=== PATIENT | female | born 1940 | race Hispanic/Latino ===

== ENCOUNTER → 2017-01-14 | Outpatient (CLI) | payer MEDICARE, MEDICAID | END | disposition home or self-care (01) | LOC: GMAM 15:06 | PROVIDERS: ATTEND Family Medicine | DX: N39.0 Urinary tract infection, site not specified (principal) ==

== ENCOUNTER → 2017-01-19 | Outpatient (CLI) | payer MEDICARE, MEDICAID ==
--- NOTE | 2017-01-20 08:47 | CT ---
EXAM DESCRIPTION: Abdomen and pelvis CT. CLINICAL HISTORY: Abdominal pain. COMPARISON: February 2015 TECHNIQUE: Prior to and after the administration of IV contrast thin slice imaging of the abdomen and pelvis was performed. FINDINGS: GI: No dilated bowel, free air, or free fluid. Liver: Fatty infiltration of the liver noted on the pre contrasted images. The liver measures 17 cm in diameter. Portal vein is widely patent. Biliary: No calcified gallstones. Spleen: Unremarkable. Pancreas: Unremarkable. Adrenal Glands: No significant nodularity. Kidneys: No suspicious enhancement. No renal stones noted. Negative for obstruction. Pelvic organs: Patient is status posthysterectomy. Bones: Mild degenerative change of the lumbar spine at L2-3. No evidence of spinal canal narrowing. Lymph nodes: No enlarged lymph nodes. Lung bases: No significant consolidation or nodularity. IMPRESSION: Today's exam demonstrates fatty infiltration of the liver, but no evidence of hepatomegaly or mass. No intra or extrahepatic biliary duct dilatation and no evidence of portal vein abnormality. Mild atherosclerosis of the non aneurysmal abdominal aorta and minimal degenerative change of the lumbar spine Electronically signed by: Joe Guadalupe MD 01/20/2017 08:45
== END | disposition home or self-care (01) ==
LOC: CT 10:00
PROVIDERS: ATTEND Family Medicine
DX: R94.5 Abnormal results of liver function studies (principal)

== ENCOUNTER → 2017-02-03 | Outpatient (CLI) | payer MEDICARE, MEDICAID | LOC: LAB.O 15:32 | PROVIDERS: ATTEND Internal Medicine Hematology & Oncology | DX: D72.819 Decreased white blood cell count, unspecified (principal); D72.820 Lymphocytosis (symptomatic) ==

== ENCOUNTER → 2018-07-01 | Outpatient (CLI) | payer MEDICARE, MEDICAID | LOC: GMAM 14:34 | PROVIDERS: ATTEND Family Medicine | DX: M79.673 Pain in unspecified foot (principal) ==

== ENCOUNTER → 2018-10-27 | Outpatient (CLI) | payer MEDICARE, MEDICAID ==
--- NOTE | 2018-10-27 10:29 | CT ---
EXAM DESCRIPTION: Abdomen/Pelvis w/Contrast: Computed Tomography. CLINICAL HISTORY: ABNORMAL FINDINGS ON RADIOLOGICAL AND OTHER EXAM OF BILIARY TRACT COMPARISON: CT abdomen pelvis with contrast 01/19/2017. CT abdomen and pelvis with contrast 03/07/2015. TECHNIQUE: Spiral-axial scans at 5 x 5 mm intervals through the abdomen and pelvis, after nonionic IV contrast without oral contrast. Coronal and sagittal 2.0 mm reconstructions. Delayed scans, liver through the pelvis. Axial-spiral 5mm. No adverse reactions. Total Exam DLP: 798.74 mGy-cm. This exam was performed according to our departmental dose-optimization program which includes automated exposure control, adjustment of the mA and/or kV according to patient size and/or use of iterative reconstruction technique; to reduce radiation dose to as low as reasonably achievable (ALARA). FINDINGS: Pancreas, Gallbladder, Ducts: On the current study, the distal common bile duct is dilated. Pancreatic head and uncinate process and minimal dilation of the distal pancreatic duct. Distally, but caliber 5.5 mm. Pancreatic head measures 3.0 x 2.9 cm. 3.6 x 3.0 cm on the prior study. Pancreatic duct measures 4 mm in the body compared to 4.8 mm on the prior study. Width of the body of the pancreas 2.4 cm on the prior study in 2.3 cm on the current study. AP diameter of the tail of pancreas 2.4 cm similar on the prior study. At the junction of the body and tail of the pancreas is a cyst or cleft between the posterior margin in the duct. This was not seen on the prior study in 2016 but is visible on the study from 2014. Other focal dilations of the pancreatic duct are seen in the body and tail which are stable compared to the prior 2 studies. No mass abutting the pancreas or fatty stranding or inflammatory changes. Gallbladder is visualized with no radiodense stones. Proximal common bile duct almost 1 cm and stable. Lung bases and pleura: Minimal atelectasis in the left base with no effusion. Coronary artery stents and calcifications. Liver, Stomach, Spleen, Adrenal Glands: Questionable thickening of the wall of the pylorus antrum and duodenal bulb with enhancing of the mucosa. Solid organs are unremarkable. Kidneys and Ureters: Unremarkable. Mesentery: No stranding or fascial thickening. No free fluid or free air. Aorta: Moderate atherosclerotic calcification including the ostia of the major branch vessels with no significant stenosis and no aneurysm. Small Bowel: Negative. Terminal Ileum/Cecum: Unremarkable. Appendix not seen. Colon: Moderate amount of fecal material throughout the colon. Pelvic Organs: Negative. Questionable bladder wall thickening. Spine and Bony Pelvis: Minimal spondylosis at L2-3. Minimal over coverage bilateral femoral heads by the anterior lateral acetabular facets. Abdominal Wall/Back Soft Tissues: Minimal diastases but no bowel hernia. IMPRESSION: 1. Pancreas appears stable compared to prior studies with slight dilation of the pancreatic duct and prominence of the pancreatic head without mass. Also prominence of the proximal and distal common bile duct is stable. Cystlike object in the posterior body of the mid pancreas is stable. No inflammatory changes in the surrounding fatty tissues. 2. Questionable thickening of the wall of the pylorus and antrum of the stomach. Correlate for gastritis or other processes. 3. Stable atherosclerosis abdominal aorta and major branch vessels. Stable spondylosis L2-3. Possible over coverage of the femoral heads by the acetabular facets which can contribute to femoral acetabular impingement. Correlate clinically. Minimal constipation. Electronically signed by: Kenneth Pack MD 10/27/2018 10:27 AM [facility] [[email or web address]]
== END ==
LOC: CT 08:00
PROVIDERS: ATTEND Family Medicine
DX: R93.2 Abnormal findings on diagnostic imaging of liver and biliary tract (principal); I70.0 Atherosclerosis of aorta; M47.896 Other spondylosis, lumbar region

== ENCOUNTER → 2019-05-26 | Outpatient (CLI) | payer MEDICARE, MEDICAID ==
--- NOTE | 2019-05-26 14:54 | US ---
EXAM DESCRIPTION: Soft Tissue,Head/Neck: ULTRASOUND. CLINICAL HISTORY: 79 years Female Neck mass. Below left ear. COMPARISON: Comparison scans below right ear. MRI scan cervical spine without contrast on the same visit. TECHNIQUE: Transcutaneous scanning: Dupree-scale and Doppler modes. FINDINGS: Typical appearance of adipose tissue, fascia between the subcutaneous tissue and muscle, and superior muscle fibers. No dominant solid mass or distinct cyst in the region of interest below the left ear. No parenchymal edema, no large calcifications, no abnormal vascularity. IMPRESSION: Scanning of the soft tissue inferior to the left ear is unremarkable with no mass demonstrated. Electronically signed by: Kenneth Pack MD 05/26/2019 2:52 PM CDT
--- NOTE | 2019-05-26 17:54 | MRI ---
EXAM DESCRIPTION: Cervical Spine: MRI. CLINICAL HISTORY: 79 years Female Cervical spinal stenosis COMPARISON: Soft tissue ultrasound neck on the same visit. TECHNIQUE: Multiplanar, high-field MRI, multiple sequences, non-contrast Cervical spine. FINDINGS: C2-C3: Minimal disc desiccation. Endplate reactive changes. Mild disc space loss but no bulging. Canal and neural foramina are patent. Posterior elements are negative. C3-C4: Minimal disc desiccation and posterior endplate and disc bulge abutting the cord in the midline. Mild canal narrowing. Facets and ligaments are negative with neural foramina patent. C4-C5: Minimal disc desiccation with disc space preserved. Tiny posterior midline bulge with hyperintense T2 annular fissure in the midline. Minimal right facet arthrosis and bilateral flavum ligament thickening. Mild canal narrowing and bilateral neural foramina are patent. C5-C6: Disc desiccation and minimal disc space loss. 1 mm grade 1 retrolisthesis. Tiny posterior midline disc bulge. Small uncinate spur on the left with mild to moderate narrowing of the neural foramen. Minimal thickening of the posterior ligament. Mild canal narrowing. Normal signal in the remaining discs with no bulging. Disc spaces preserved. Canal and neural foramina are patent. Facet joints are negative Spinal alignment normal lordosis.. No cord compression or cord edema. Atlantoaxial joint is negative.. Base of the cerebellar tonsils is above the foramen magnum. Paravertebral soft tissues demonstrating small bilateral thyroid cysts, or subcentimeter nodules otherwise unremarkable.. Vertebral bodies are not compressed at any level. Normal marrow signal in the remaining vertebral bodies and the posterior elements. IMPRESSION: 1. Tiny posterior midline C3-C4 disc bulge abutting the cord in the midline. No cord compression and no canal stenosis. 2. Tiny posterior midline C4-C5 disc bulge with annular fissure not abutting the cord. 3. No canal stenosis or neural foraminal stenosis at any level. 4. Subcentimeter incidental thyroid nodules or cysts. No follow-up imaging is recommended. Reference: J Am Lesley Radiol. 2015 Dec;12(2): 143-50 Electronically signed by: Kenneth Pack MD 05/26/2019 5:52 PM CDT
== END ==
LOC: US 09:00
PROVIDERS: ATTEND Family Medicine
DX: M48.02 Spinal stenosis, cervical region (principal); M50.91 Cervical disc disorder, unspecified, high cervical region; E07.89 Other specified disorders of thyroid; R22.1 Localized swelling, mass and lump, neck